=== PATIENT | female | born 1975 | race Caucasian/White ===

== ENCOUNTER 2017-04-20 00:35 | Emergency (ER) | payer MEDICAID ==
[~2017-04-20] VITALS: Ht 172.7 cm; Wt 55.0 kg
[2017-04-20] MEDS ORDERED: KETOROLAC 60MG/2ML VIAL IM ONE (06:45)
[2017-04-20 09:27] VITALS: BP 107/62
== END 2017-04-20 09:51 | disposition home or self-care (01) ==
LOC: ER 00:35
DX: M79.671 Pain in right foot (principal); M79.672 Pain in left foot; R51 Headache
CPT/HCPCS: 70450; 73630; 81025; 96372; 99284; J1885; Z7610

== ENCOUNTER 2021-03-23 20:44 | Emergency (ER) | payer MEDICAID ==
[~2021-03-23] VITALS: Ht 167.6 cm; Wt 64.0 kg
[2021-03-23 20:45] VITALS: BP 140/84
[2021-03-23] MEDS ORDERED: DIPHENHYDRAMINE 25MG CAPSULE PO ONE (21:30)
[2021-03-23] MEDS ORDERED: PERM60CR4 TP (22:04)
[2021-03-23] MEDS ORDERED: DIPH25CA83 MT (22:04)
== END 2021-03-23 22:53 | disposition home or self-care (01) ==
LOC: ER 20:44
DX: B86 Scabies (principal); F10.10 Alcohol abuse, uncomplicated; Y90.9 Presence of alcohol in blood, level not specified; E11.9 Type 2 diabetes mellitus without complications; I50.9 Heart failure, unspecified; F17.200 Nicotine dependence, unspecified, uncomplicated; Z88.2 Allergy status to sulfonamides; Z91.010 Allergy to peanuts; Z91.018 Allergy to other foods
CPT/HCPCS: 99283; Q0163

== ENCOUNTER 2021-03-24 02:42 | Emergency (ER) | payer MEDICAID ==
[~2021-03-24] VITALS: Ht 162.6 cm; Wt 54.0 kg
[~2021-03-24 02:42] MED LIST: DIPH25CA83 MT; PERM60CR4 TP
[2021-03-24 02:49] VITALS: BP 131/88
== END 2021-03-24 03:14 | disposition home or self-care (01) ==
LOC: ER 02:42
DX: B86 Scabies (principal); I50.9 Heart failure, unspecified; E11.9 Type 2 diabetes mellitus without complications; I49.9 Cardiac arrhythmia, unspecified; Z59.0 Homelessness; Z91.018 Allergy to other foods; Z88.2 Allergy status to sulfonamides; Z91.010 Allergy to peanuts
CPT/HCPCS: 93005; 99283; Z7610